=== PATIENT | male | born 1950 | race Caucasian/White ===

== ENCOUNTER 2016-12-23 10:45 | Outpatient (CLI) | payer MEDICARE ==
[2016-10-23 10:37] VITALS: BP 115/67
[2016-12-23 10:51] LABS: BASOPHILS % 0.6 (0.0-1.5); EOSINOPHILS % 3.7 % (0.0-6.8); MEAN CORPUSCULAR HEMOGLOBIN 27.8 pg (28.0-34.0); MONOCYTES # 0.3 # k/uL (0.0-0.9); MONOCYTES % 4.4 % (0.0-11.0); NEUTROPHILS # 5.2 # k/uL (1.4-7.7)
[2016-12-23 11:03] LABS: eGFR (African) > 60; eGFR (Non-African) > 60
== END 2016-12-23 10:46 ==
LOC: LAB 10:45
PROVIDERS: ATTEND Family Medicine
DX: R53.1 Weakness (principal)
CPT/HCPCS: 80053; 85025

== ENCOUNTER 2017-03-14 08:48 | Outpatient (CLI) | payer MEDICARE ==
[2016-10-23 10:37] VITALS: BP 115/67
== END 2017-03-14 08:50 ==
LOC: LAB 08:48
PROVIDERS: ATTEND Family Medicine
DX: E78.5 Hyperlipidemia, unspecified (principal)
CPT/HCPCS: 36415; 80061

== ENCOUNTER 2017-05-16 09:36 | Outpatient (CLI) | payer MEDICARE ==
[2016-10-23 10:37] VITALS: BP 115/67
[2017-05-16 09:54] LABS: BASOPHILS % 0.9 (0.0-1.5); MEAN CORPUSCULAR HEMOGLOBIN 29.3 pg (28.0-34.0); MEAN CORPUSCULAR VOLUME 85.1 fl (80.0-100.0); MONOCYTES % 6.3 % (0.0-11.0); NEUTROPHILS # 3.1 # k/uL (1.4-7.7)
[2017-05-16 09:56] LABS: APPEARANCE,URINE Clear (CLEAR); COLOR,URINE Yellow (YELLOW); OCCULT BLOOD,URINE Negative (NEGATIVE); PH URINE 5.5 (5.0 - 8.0); UROBILINOGEN URINE 0.2 Eu (0.2-1.0)
[2017-05-16 10:19] LABS: eGFR (African) > 60; eGFR (Non-African) > 60
== END 2017-05-16 09:37 ==
LOC: LAB 09:36
PROVIDERS: ATTEND Family Medicine
DX: N39.498 Other specified urinary incontinence (principal); I10 Essential (primary) hypertension; Z51.81 Encounter for therapeutic drug level monitoring
CPT/HCPCS: 36415; 80053; 81002; 85025

== ENCOUNTER 2017-05-17 08:43 | Outpatient (CLI) | payer MEDICARE ==
[2016-10-23 10:37] VITALS: BP 115/67
--- NOTE | 2017-05-17 11:12 | Diagnostic Imaging Report ---
DORCAS RUSSELL [facility] [address] [facility] [address] [place], [place]. [address] Report Submission Date: May 17, 2017 9:49:51 AM CDT Patient Study Name: SUMEET GUSTAFSON Date: May 17, 2017 8:58:40 AM CDT Modality Type: CT\SR Gender: M Description: CT BRAIN W/O CONTRAST : 48 Institution: [facility] Physician: DORCAS RUSSELL Examination: CT head without contrast History: Altered mental status Comparison exam: 06 December 2015 Technique: Noncontrast head CT protocol. Findings: Ventricles and sulci are prominent, though stable to prior examination. Cerebrocerebellar parenchyma demonstrates periventricular low attenuation consistent with small vessel disease: also stable. No evidence for parenchymal hemorrhage. No evidence for mass or mass effect. No midline shift. No extra axial fluid collections. Partial visualization of the paranasal sinuses , mastoid air cells, orbits, skull and scalp without gross regularity. Anterior falx calcifications. Impression: Advanced age related changes. No acute parenchymal process. No hemorrhage. Stable examination back to November 2015. Electronically signed on May 17, 2017 9:49:51 AM CDT by: David PARTIDA
== END 2017-05-17 08:44 ==
LOC: RAD 08:43
PROVIDERS: ATTEND Family Medicine
DX: R41.82 Altered mental status, unspecified (principal)
CPT/HCPCS: 70450

== ENCOUNTER 2017-06-08 13:21 | Outpatient (CLI) | payer MEDICARE ==
[2016-10-23 10:37] VITALS: BP 115/67
== END 2017-06-08 13:22 ==
LOC: LABRHC 13:21
PROVIDERS: ATTEND Physician Assistant
DX: R82.99 Other abnormal findings in urine (principal)
CPT/HCPCS: 87086

== ENCOUNTER 2017-07-13 14:34 | Outpatient (CLI) | payer MEDICARE ==
[2016-10-23 10:37] VITALS: BP 115/67
--- NOTE | 2017-07-13 15:50 | Diagnostic Imaging Report ---
ANTHONY STEVENSON [facility] [address] [facility] [address] [place] [address]. [id number] Report Submission Date: Jul 13, 2017 3:28:14 PM CDT Patient Study Name: SUMEET GUSTAFSON Date: Jul 13, 2017 3:04:48 PM CDT Modality Type: CT\SR Gender: M Description: CT BRAIN W/O CONTRAST : 48 Institution: [facility] Physician: ANTHONY STEVENSON Examination: CT head without contrast History: Neurologic change Comparison exam: 17 May 2017 Technique: Noncontrast head CT protocol. Findings: Ventricles and sulci are prominent, though consistent for patient age : stable the prior study. Cerebrocerebellar parenchyma demonstrates periventricular low attenuation consistent with small vessel disease: also stable. No evidence for parenchymal hemorrhage. No evidence for mass or mass effect. No midline shift. No extra axial fluid collections. Partial visualization of the paranasal sinuses, mastoid air cells, orbits, skull and scalp without gross regularity. Anterior falx calcifications. Impression: Stable age related changes. No acute parenchymal process. No hemorrhage. If symptoms persist, consider obtaining MRI to further evaluate. Electronically signed on Jul 13, 2017 3:28:14 PM CDT by: David PARTIDA
== END 2017-07-13 14:35 ==
LOC: RAD 14:34
PROVIDERS: ATTEND Physician Assistant
DX: R29.818 Other symptoms and signs involving the nervous system (principal)
CPT/HCPCS: 70450

== ENCOUNTER 2017-07-18 08:16 | Outpatient (CLI) | payer MEDICARE ==
[2016-10-23 10:37] VITALS: BP 115/67
[2017-07-18 09:00] LABS: BASOPHILS % 1.4 (0.0-1.5); EOSINOPHILS % 6.6 % (0.0-6.8); MEAN CORPUSCULAR HEMOGLOBIN 29.1 pg (28.0-34.0); MEAN CORPUSCULAR VOLUME 81.8 fl (80.0-100.0); MONOCYTES % 6.4 % (0.0-11.0)
[2017-07-18 09:08] LABS: eGFR (African) > 60; eGFR (Non-African) > 60
== END 2017-07-18 08:17 ==
LOC: LAB 08:16
PROVIDERS: ATTEND Psychiatry & Neurology Neurology
DX: Z79.899 Other long term (current) drug therapy (principal)
CPT/HCPCS: 36415; 80053; 80061; 83036; 85025

== ENCOUNTER 2017-09-20 12:08 | Outpatient (CLI) | payer MEDICARE ==
[2016-10-23 10:37] VITALS: BP 115/67
[2017-09-20 12:17] LABS: APPEARANCE,URINE Clear (CLEAR); COLOR,URINE Yellow (YELLOW); OCCULT BLOOD,URINE Trace-intact (NEGATIVE); UROBILINOGEN URINE 0.2 Eu (0.2-1.0)
== END 2017-09-20 12:10 ==
LOC: LAB 12:08
PROVIDERS: ATTEND Family Medicine
DX: N39.498 Other specified urinary incontinence (principal)
CPT/HCPCS: 81002

== ENCOUNTER 2018-06-14 08:28 | Outpatient (CLI) | payer MEDICARE ==
[2016-10-23 10:37] VITALS: BP 115/67
[2018-06-14 08:48] LABS: BASOPHILS % 1.1 (0.0-1.5); MEAN CORPUSCULAR HEMOGLOBIN 29.1 pg (28.0-34.0); MEAN CORPUSCULAR VOLUME 86.5 fl (80.0-100.0); MONOCYTES % 5.7 % (0.0-11.0); NEUTROPHILS # 3.1 # k/uL (1.4-7.7)
[2018-06-14 09:27] LABS: eGFR (African) > 60; eGFR (Non-African) > 60
== END 2018-06-14 08:30 ==
LOC: LAB 08:28
PROVIDERS: ATTEND Family Medicine
DX: I10 Essential (primary) hypertension (principal); E11.9 Type 2 diabetes mellitus without complications; E78.5 Hyperlipidemia, unspecified
CPT/HCPCS: 80053; 83036; 85025

== ENCOUNTER 2018-08-26 08:05 | Outpatient (CLI) | payer MEDICARE ==
[2016-10-23 10:37] VITALS: BP 115/67
== END 2018-08-26 08:07 ==
LOC: LAB 08:05
PROVIDERS: ATTEND Family Medicine
DX: E78.5 Hyperlipidemia, unspecified (principal)
CPT/HCPCS: 36415; 80061

== ENCOUNTER 2018-11-11 13:21 | Outpatient (CLI) | payer MEDICARE ==
[2016-10-23 10:37] VITALS: BP 115/67
--- NOTE | 2018-11-11 16:58 | Diagnostic Imaging Report ---
DORCAS RUSSELL [facility] [address] [facility] [address] [address] Report Submission Date: Nov 11, 2018 3:22:27 PM [employer] Patient Study Name: SUMEET GUSTAFSON Date: Nov 11, 2018 1:46:12 PM [employer] Modality Type: DX Gender: M Description: CHEST : 48 Institution: [facility] Physician: DORCAS RUSSELL Examination: PA and lateral chest. History: Evaluate lung mendez. DYSPNEA ON EXERTION (Hx) Comparison exam: None provided. Findings: PA and lateral views of the chest demonstrates a normal cardiac and mediastinal silhouette. No focal infiltrate. No blunting of the costophrenic margins. Osseous structures are appropriate for age. Impression: No acute pulmonary process. Electronically signed on Nov 11, 2018 3:22:27 PM [employer] by: David PARTIDA
[2018-11-11 17:00] LABS: APPEARANCE,URINE CLEAR (CLEAR); COLOR,URINE YELLOW (YELLOW); OCCULT BLOOD,URINE NEGATIVE (NEGATIVE); PH URINE 5.5 (5.0 - 8.0); UROBILINOGEN URINE 0.2 Eu (0.2-1.0)
[2018-11-11 17:26] LABS: MEAN CORPUSCULAR HEMOGLOBIN 27.1 pg (28.0-34.0)
[2018-11-11 17:27] LABS: BASOPHILS % 0.3 (0.0-1.5); EOSINOPHILS % 3.6 % (0.0-6.8); MONOCYTES % 4.8 % (0.0-11.0); NEUTROPHILS # 3.4 # k/uL (1.4-7.7)
[2018-11-11 17:29] LABS: eGFR (Non-African) > 60
== END 2018-11-11 13:22 ==
LOC: LAB 13:21
PROVIDERS: ATTEND Family Medicine
DX: R06.00 Dyspnea, unspecified (principal); N39.498 Other specified urinary incontinence; Z51.81 Encounter for therapeutic drug level monitoring
CPT/HCPCS: 71046; 80053; 81002; 85025

== ENCOUNTER 2019-02-07 15:50 | Outpatient (CLI) | payer MEDICARE ==
[2016-10-23 10:37] VITALS: BP 115/67
--- NOTE | 2019-02-07 17:51 | Diagnostic Imaging Report ---
DORCAS RUSSELL [facility] [address] [facility] [address] [address] Report Submission Date: Feb 07, 2019 4:54:54 PM CDT Patient Study Name: SUMEET GUSTAFSON Date: Feb 07, 2019 3:55:00 PM CDT Modality Type: DX Gender: M Description: C SPINE 4 VIEWS OR MORE : 48 Institution: [facility] Physician: DORCAS RUSSELL EXAMINATION: C SPINE 4 VIEWS OR MORE HISTORY: C-SPINE, NECK PAIN, RIGHT C5-6 RADICULOPATHY, HX OF ORIF TO RT SHOULDER, PT STATES NO RECENT INJURY COMPARISON: None FINDINGS: The vertebral bodies are normally aligned. No acute fracture or compression deformity is identified. There is moderate degenerative disc disease. The dens is intact and the lateral masses are normally aligned. The predental interval and prevertebral soft tissues are normal. IMPRESSION: 1. No acute fracture or subluxation identified. 2. Moderate cervical degenerative disc disease. Electronically signed on Feb 07, 2019 4:54:54 PM CDT by: Matthew PARTIDA
--- NOTE | 2019-02-07 17:51 | Diagnostic Imaging Report ---
DORCAS RUSSELL [facility] [address] [facility] [address] Report Submission Date: Feb 07, 2019 4:58:40 PM CDT Patient Study Name: USMEET GUSTAFSON Date: Feb 07, 2019 4:02:23 PM CDT Modality Type: DX Gender: M Description: SHOULDER 2 VIEWS OR MORE : 48 Institution: [facility] Physician: DORCAS RUSSELL EXAMINATION: SHOULDER 2 VIEWS OR MORE HISTORY: RT SHOULDER, NECK PAIN, RIGHT C5-6 RADICULOPATHY, HX OF ORIF ON RT SHOULDER COMPARISON: None FINDINGS: The patient is status post internal fixation of a proximal humeral fracture consisting of a short intramedullary nail and multiple screws. The hardware appears intact. The fracture appears healed with minimal residual deformity. No acute fracture is identified. The glenohumeral and acromioclavicular joints are in anatomic alignment. There is mild glenohumeral and acromioclavicular joint osteoarthritis. IMPRESSION: 1. No acute fracture or dislocation identified. Healed, internally fixed proximal humeral fracture. 2. Mild shoulder osteoarthritis. Electronically signed on Feb 07, 2019 4:58:40 PM CDT by: Matthew PARTIDA
== END 2019-02-07 16:00 ==
LOC: RAD 15:50
PROVIDERS: ATTEND Family Medicine
DX: M54.2 Cervicalgia (principal); M19.011 Primary osteoarthritis, right shoulder
CPT/HCPCS: 72040; 73030

== ENCOUNTER 2019-07-25 11:24 | Outpatient (CLI) | payer MEDICARE ==
[2016-10-23 10:37] VITALS: BP 115/67
[2019-07-25 11:47] LABS: BASOPHILS % 0.5 % (0.0-1.5); NEUTROPHILS # 3.2 # k/uL (1.4-7.7)
[2019-07-25 12:27] LABS: HDL 44 mg/dL (>40); eGFR (Non-African) > 60
[2019-07-28 07:59] LABS: A1C 5.5 % (<5.7)
== END 2019-07-25 11:30 ==
LOC: LAB 11:24
PROVIDERS: ATTEND Family Medicine
DX: E78.5 Hyperlipidemia, unspecified (principal); E11.9 Type 2 diabetes mellitus without complications; E55.9 Vitamin D deficiency, unspecified; Z79.899 Other long term (current) drug therapy
CPT/HCPCS: 36415; 80053; 80061; 82306; 83036; 85025

== ENCOUNTER 2019-10-14 07:47 | Outpatient (CLI) | payer MEDICARE ==
[2016-10-23 10:37] VITALS: BP 115/67
[2019-10-14 07:53] LABS: eGFR (Non-African) > 60
[2019-10-14 07:54] LABS: A1C 5.5 % (<5.7)
== END 2019-10-14 07:52 ==
LOC: LAB 07:47
PROVIDERS: ATTEND Family Medicine
DX: E11.9 Type 2 diabetes mellitus without complications (principal); N39.0 Urinary tract infection, site not specified
CPT/HCPCS: 36415; 80053; 83036